=== PATIENT | female | born 1985 | race Caucasian/White ===

== ENCOUNTER → 2017-03-21 | Outpatient (CLI) | payer BC ==
[~2017-03-21] MED LIST: IOPAMIDOL (ISOVUE-300) 100 ML BTL ONE
== END ==
LOC: CIMAGING 14:11
PROVIDERS: ATTEND Internal Medicine Infectious Disease
DX: J31.1 Chronic nasopharyngitis (principal); J31.2 Chronic pharyngitis
CPT/HCPCS: 70487-PO; 70491-PO; Q9967